=== PATIENT | male | born 1940 | race Caucasian/White ===

== ENCOUNTER 2020-01-04 13:23 | Inpatient (IN) | payer MEDICARE ==
[~2020-01-04] VITALS: Ht 175.3 cm; Wt 93.1 kg
[2020-01-04] MEDS ORDERED: SODIUM CHLORIDE FLUSH 10ML SYR IVF ONE (13:30)
--- NOTE | 2020-01-04 13:59 | NUR ---
PT. ARRIVES BY [facility]. PT. IS BEING TRANSFERRED FROM [facility] FOR EVALUATION OF POSSIBLE THIRD DEGREE HEART BLOCK VS A JUNCTIONAL RHYTHM. PT.'S DAUGHTER TOOK HIM TO THE FACILITY FOR EVUALTION OF HIM BEING WEAK, TREMULOUS AND CONFUSED. PT. IS A & O X 4 WITH A GCS OF 15. PT. IS VERY [place] EVEN WITH HEARING AIDES IN PLACE. UPON ARRIVAL PT. WAS PLACED ON THE CARDIACPULMONARY MONITOR AND A 12 LEAD EKG WAS DONE. PT. ARRIVES WITH A #20G IN PLACE IN HIS RIGHT WRIST FROM THE FIELD A SECOND IV WAS ESTABLISHED IN HIS LAC WITH LABS OBTAINED. PACER PADS ARE IN PLACE. PT. IS PINK, WARM AND DRY. CAP REFILL IS BRISK, LESS THAN 3 SECS. PULSES ARE +2 THROUGHOUT. PT.'S ABD. IS SOFT AND NON-TENDER WITH BS + X 4 QUADS. PT. IS ABLE TO MOVE ALL EXTREMITIES WITHIN NORMAL LIMITS. NO EDEMA NOTED. DR. FREY IS AT THE BEDSIDE.
[2020-01-04 14:05] LABS: BASOPHILS # (AUTO) 0.03 x10^3/uL (0-0.1); BASOPHILS % (AUTO) 0 % (0-1); EOSINOPHILS % (AUTO) 2 % (1-7); LYMPHOCYTES # (AUTO) 2.06 x10^3/uL (1-3.4); LYMPHOCYTES % (AUTO) 24 % (22-44); MD NO; MEAN CORPUSCULAR HEMOGLOBIN 28.8 pg (27.5-34.5); MEAN CORPUSCULAR HGB CONC 33.1 g/dL (33.2-36.2); MEAN PLATELET VOLUME 8.8 fL (7.4-10.4); MONOCYTES # (AUTO) 0.52 x10^3/uL (0.2-0.8); MONOCYTES % (AUTO) 6 % (2-9); NEUTROPHILS % (AUTO) 67 % (42-75); PLATELET COUNT 257 x10^3/uL (130-400); RED BLOOD COUNT 4.34 x10^6/uL (4.38-5.82); RED CELL DISTRIBUTION WIDTH 14.6 % (9.4-14.8)
--- NOTE | 2020-01-04 14:10 | NUR ---
PT. IS HYPOTENSIVE. DR. FREY AND DR. NY AWARE. ORDERS RECEIVED FROM DR. FREY AND CARRIED OUT. RN REMAINS AT THE BEDSIDE WITH THE PT. PACER PADS IN PLACE WITH THE PT. BEING MONITORED. NS BOLUS IS INFUSING.
[2020-01-04 14:13] LABS: ALBUMIN 4.2 g/dL (3.4-5.0); ANION GAP 6 mmol/L (5-15); CALCIUM 10.1 mg/dL (8.5-10.1); CHLORIDE 110 mmol/L (98-107); CREATININE 1.76 mg/dL (0.7-1.3)
[2020-01-04 14:18] LABS: TROPONIN I < 0.015 ng/mL (0.000-0.045)
--- NOTE | 2020-01-04 14:25 | NUR ---
PT.'S BLOOD PRESSURE IS IMPROVING FROM THE NS BOLUS. PT. REMAINS A & O X 4 WITHOUT C/O CHEST PAIN. SKIN IS PINK,WARM AND DRY, CAP REFILL IS BRISK.
[2020-01-04] MEDS ORDERED: SODIUM CHLORIDE 0.9% 1,000ML IVBOLUS ONE (14:30)
[2020-01-04] MEDS ORDERED: ATOR-2 PO (14:41)
[2020-01-04] MEDS ORDERED: MIRT30TA97 PO (14:41)
[2020-01-04] MEDS ORDERED: METF500T17 PO (14:41)
[2020-01-04] MEDS ORDERED: METO50TA82 PO (14:41)
[2020-01-04] MEDS ORDERED: LITH600C PO (14:41)
[2020-01-04] MEDS ORDERED: EXEN2PEN IM (14:41)
[2020-01-04] MEDS ORDERED: GEMF600T8 PO (14:41)
[2020-01-04] MEDS ORDERED: LEVO175T5 PO (14:41)
--- NOTE | 2020-01-04 14:49 | NUR ---
PT.'S BLOOD PRESSURE IS NOW 61/43 THEN 76/43 WITH RECHECK. PT. WAS STARTED ON DOBUTAMINE INFUSION AT 5MCG/KG/MIN PRE DR. NY'S VERBAL ORDER THAT WAS REPEATED BACK TO HIM. CONTINUOUS MONITORING IN PLACE.
--- NOTE | 2020-01-04 14:59 | NUR ---
PT. IS BEING TRANSPORTED TO THE [facility]. MONITOR IN PLACE RN TO ACCOMPANY.
[2020-01-04] MEDS ORDERED: SODIUM CHLORIDE FLUSH 10ML SYR IVF PRN (15:00)
[2020-01-04] MEDS ORDERED: PLEASE ENTER ALLERGIES MC SCH (15:00)
[2020-01-04] MEDS ORDERED: PLEASE ENTER HEIGHT AND WEIGHT MC SCH (15:00)
[2020-01-04] MEDS ORDERED: DOBUTAMINE 500 MG in DEXTROSE 5% 210 ML IV PRN (15:00)
[2020-01-04] MEDS ORDERED: MIDAZOLAM 1 MG/ML, 5ML ONE (15:10)
[2020-01-04] MEDS ORDERED: FENTANYL PF 100 MCG/2ML ONE (15:10)
[2020-01-04] MEDS ORDERED: CEFAZOLIN PMX 1GM/50ML 50 ML ONE (15:10)
[2020-01-04] MEDS ORDERED: CEFAZOLIN 1,000 MG ONE (15:10)
[2020-01-04] MEDS ORDERED: LIDOCAINE 2%, 20ML ONE (15:10)
--- NOTE | 2020-01-04 15:10 | NUR ---
REPORT WAS TO BETHANY DAVIS. PT.'S BLOOD PRESSURE IMPROVED WITH DOBUTAMINE INFUSION.
[2020-01-04] MEDS ORDERED: HOLD MEDICATION MC PRN (16:30)
[2020-01-04] MEDS ORDERED: ONDANSETRON 2MG/ML, 2ML IVPush PRN (17:00)
[2020-01-04] MEDS ORDERED: POLYETHYLENE GLYCOL 17 GM PACKET PO PRN (17:00)
[2020-01-04] MEDS ORDERED: MELATONIN 5 MG TABLET PO PRN (17:00)
[2020-01-04] MEDS ORDERED: hydrALAzine 20 MG/ML, 1ML IVPush PRN (17:00)
[2020-01-04] MEDS ORDERED: HYDROcodone/APAP 5/325 TABLET PO PRN (17:00)
[2020-01-04] MEDS ORDERED: LIDODERM 5% PATCH TD PRN (17:00)
[2020-01-04] MEDS ORDERED: BISACODYL 10 MG SUPP PR PRN (17:00)
[2020-01-04 17:59] LABS: HCT (SEDRATE) 37.8 % (39.2-51.8)
[2020-01-04 18:18] LABS: FREE T4 (FREE THYROXINE) 1.37 ng/dL (0.76-1.46)
[2020-01-04 19:30] VITALS: BP 147/85
[2020-01-04] MEDS: HEPARIN 5,000 UNITS/ML, 1ML SQ SCH (21:00)
[2020-01-04] MEDS: CEFAZOLIN PMX 1GM/50ML 50 ML IVPB SCH (22:31)
[2020-01-04] MEDS: SODIUM CHLORIDE FLUSH 10ML SYR IVF SCH (22:32)
[2020-01-04] MEDS: SODIUM CHLORIDE 0.9% 1,000 ML IV SCH (22:37)
[2020-01-04] MEDS: INSULIN LISPRO 100 UNITS/ML, PEN SQ-INSULIN SCH (23:22)
[2020-01-05 00:39] VITALS: BP 146/69
[2020-01-05] MEDS: LIDODERM REMOVE PATCH NOTE XX SCH (05:00)
[2020-01-05] MEDS: HEPARIN 5,000 UNITS/ML, 1ML SQ SCH ×3 (05:00→21:03)
[2020-01-05 05:37] LABS: BASOPHILS # (AUTO) 0.02 x10^3/uL (0-0.1); BASOPHILS % (AUTO) 0 % (0-1); EOSINOPHILS # (AUTO) 0.11 x10^3/uL (0-0.4); EOSINOPHILS % (AUTO) 2 % (1-7); LYMPHOCYTES # (AUTO) 1.45 x10^3/uL (1-3.4); LYMPHOCYTES % (AUTO) 20 % (22-44); MD NO; MEAN CORPUSCULAR HEMOGLOBIN 28.7 pg (27.5-34.5); MEAN PLATELET VOLUME 9.3 fL (7.4-10.4); MONOCYTES # (AUTO) 0.48 x10^3/uL (0.2-0.8); MONOCYTES % (AUTO) 6 % (2-9); NEUTROPHILS # (AUTO) 5.37 x10^3/uL (1.8-6.8); NEUTROPHILS % (AUTO) 72 % (42-75); PLATELET COUNT 200 x10^3/uL (130-400); RED BLOOD COUNT 4.32 x10^6/uL (4.38-5.82); RED CELL DISTRIBUTION WIDTH 14.1 % (9.4-14.8)
[2020-01-05 05:45] LABS: ANION GAP 5 mmol/L (5-15); CALCIUM 8.8 mg/dL (8.5-10.1); CHLORIDE 112 mmol/L (98-107)
[2020-01-05 05:49] LABS: CHOL/HDL RATIO 6.7; CHOLESTEROL, TOTAL 161 mg/dL (140-239); CREATININE 1.29 mg/dL (0.7-1.3); HDL CHOL % 15 % (26-37); HDL CHOLESTEROL (DIRECT) 24 mg/dL (40-60); LDL CHOLESTEROL,CALCULATED 96 mg/dL (54-169); TRIGLYCERIDES 204 mg/dL (50-200); VLDL CHOLESTEROL 41 mg/dL (0-25)
[2020-01-05] MEDS: CEFAZOLIN PMX 1GM/50ML 50 ML IVPB SCH (06:23)
[2020-01-05 07:29] VITALS: BP 144/69
[2020-01-05] MEDS: INSULIN LISPRO 100 UNITS/ML, PEN SQ-INSULIN SCH ×4 (08:13→20:54)
[2020-01-05] MEDS ORDERED: LISI5TAB7 PO (08:17)
[2020-01-05] MEDS: SODIUM CHLORIDE FLUSH 10ML SYR IVF SCH ×2 (08:23→21:03)
[2020-01-05] MEDS: PANTOPRAZOLE 40MG TABLET PO SCH (08:23)
[2020-01-05] MEDS: SODIUM CHLORIDE 0.9% 1,000 ML IV SCH ×2 (10:29→21:03)
[2020-01-05 13:20] VITALS: BP 121/58
[2020-01-05] MEDS: HYDROcodone/APAP 5/325 TABLET PO PRN (18:16)
[2020-01-05 18:36] VITALS: BP 125/71
[2020-01-06 00:59] VITALS: BP 137/81
[2020-01-06] MEDS: LIDODERM REMOVE PATCH NOTE XX SCH (05:00)
[2020-01-06 05:31] LABS: ANION GAP 6 mmol/L (5-15); CALCIUM 9.3 mg/dL (8.5-10.1); CHLORIDE 112 mmol/L (98-107); CREATININE 1.09 mg/dL (0.7-1.3)
[2020-01-06 05:36] LABS: BASOPHILS # (AUTO) 0.02 x10^3/uL (0-0.1); BASOPHILS % (AUTO) 0 % (0-1); EOSINOPHILS # (AUTO) 0.13 x10^3/uL (0-0.4); EOSINOPHILS % (AUTO) 2 % (1-7); LYMPHOCYTES # (AUTO) 1.71 x10^3/uL (1-3.4); LYMPHOCYTES % (AUTO) 30 % (22-44); MD NO; MEAN CORPUSCULAR HEMOGLOBIN 28.5 pg (27.5-34.5); MEAN CORPUSCULAR HGB CONC 32.3 g/dL (33.2-36.2); MEAN PLATELET VOLUME 8.7 fL (7.4-10.4); MONOCYTES # (AUTO) 0.45 x10^3/uL (0.2-0.8); MONOCYTES % (AUTO) 8 % (2-9); NEUTROPHILS # (AUTO) 3.45 x10^3/uL (1.8-6.8); NEUTROPHILS % (AUTO) 60 % (42-75); PLATELET COUNT 175 x10^3/uL (130-400); RED BLOOD COUNT 4.37 x10^6/uL (4.38-5.82); RED CELL DISTRIBUTION WIDTH 14.1 % (9.4-14.8)
[2020-01-06] MEDS: HEPARIN 5,000 UNITS/ML, 1ML SQ SCH ×3 (06:09→22:35)
[2020-01-06] MEDS: HYDROcodone/APAP 5/325 TABLET PO PRN (06:09)
[2020-01-06] MEDS: SODIUM CHLORIDE 0.9% 1,000 ML IV SCH (06:09)
[2020-01-06 06:50] VITALS: BP 160/80
[2020-01-06] MEDS: INSULIN LISPRO 100 UNITS/ML, PEN SQ-INSULIN SCH ×4 (07:00→21:00)
[2020-01-06] MEDS: PANTOPRAZOLE 40MG TABLET PO SCH (08:46)
[2020-01-06] MEDS: SODIUM CHLORIDE FLUSH 10ML SYR IVF SCH ×2 (08:47→22:36)
[2020-01-06] MEDS: LISINOPRIL 20 MG TABLET PO SCH (10:02)
[2020-01-06 12:37] VITALS: BP 163/99
[2020-01-06] MEDS: LEVOTHYROXINE 137 MCG TABLET PO SCH (13:21)
[2020-01-06 13:24] VITALS: BP 145/75
[2020-01-06] MEDS: ACETAMINOPHEN 325 MG TABLET PO PRN ×2 (17:51→22:34)
[2020-01-06 21:45] VITALS: BP 159/78
[2020-01-06] MEDS: ATORVASTATIN 20 MG TABLET PO SCH (22:34)
[2020-01-06] MEDS: MIRTAZAPINE 30 MG TABLET PO SCH (22:34)
[2020-01-06] MEDS: LITHIUM CARBONATE 300 MG CAPSULE PO SCH (22:35)
[2020-01-07 02:40] VITALS: BP 151/84
[2020-01-07 04:57] LABS: BASOPHILS # (AUTO) 0.01 x10^3/uL (0-0.1); BASOPHILS % (AUTO) 0 % (0-1); EOSINOPHILS # (AUTO) 0.12 x10^3/uL (0-0.4); EOSINOPHILS % (AUTO) 2 % (1-7); LYMPHOCYTES # (AUTO) 1.54 x10^3/uL (1-3.4); LYMPHOCYTES % (AUTO) 26 % (22-44); MD NO; MEAN CORPUSCULAR HEMOGLOBIN 29.1 pg (27.5-34.5); MEAN CORPUSCULAR HGB CONC 33.8 g/dL (33.2-36.2); MEAN PLATELET VOLUME 8.8 fL (7.4-10.4); MONOCYTES # (AUTO) 0.47 x10^3/uL (0.2-0.8); MONOCYTES % (AUTO) 8 % (2-9); NEUTROPHILS # (AUTO) 3.84 x10^3/uL (1.8-6.8); NEUTROPHILS % (AUTO) 64 % (42-75); PLATELET COUNT 168 x10^3/uL (130-400); RED BLOOD COUNT 4.22 x10^6/uL (4.38-5.82); RED CELL DISTRIBUTION WIDTH 13.9 % (9.4-14.8)
[2020-01-07] MEDS: LIDODERM REMOVE PATCH NOTE XX SCH (05:00)
[2020-01-07 05:10] LABS: ANION GAP 6 mmol/L (5-15); CALCIUM 10.4 mg/dL (8.5-10.1); CHLORIDE 112 mmol/L (98-107)
[2020-01-07 05:12] LABS: CREATININE 0.96 mg/dL (0.7-1.3)
[2020-01-07] MEDS: ACETAMINOPHEN 325 MG TABLET PO PRN (06:28)
[2020-01-07] MEDS: HEPARIN 5,000 UNITS/ML, 1ML SQ SCH ×3 (06:28→20:24)
[2020-01-07] MEDS: LEVOTHYROXINE 137 MCG TABLET PO SCH (06:29)
[2020-01-07 06:56] VITALS: BP 150/75
[2020-01-07] MEDS: INSULIN LISPRO 100 UNITS/ML, PEN SQ-INSULIN SCH ×4 (08:37→21:17)
[2020-01-07] MEDS: LITHIUM CARBONATE 300 MG CAPSULE PO SCH ×2 (10:05→20:25)
[2020-01-07] MEDS: LISINOPRIL 20 MG TABLET PO SCH (10:06)
[2020-01-07] MEDS: SODIUM CHLORIDE FLUSH 10ML SYR IVF SCH ×2 (10:06→21:46)
[2020-01-07] MEDS: PANTOPRAZOLE 40MG TABLET PO SCH (10:06)
[2020-01-07 12:10] VITALS: BP 179/95
[2020-01-07 12:47] VITALS: BP 158/86
[2020-01-07 18:41] VITALS: BP 149/76
[2020-01-07] MEDS: ATORVASTATIN 20 MG TABLET PO SCH (20:25)
[2020-01-07] MEDS: MIRTAZAPINE 30 MG TABLET PO SCH (20:25)
[2020-01-07] MEDS: HYDROcodone/APAP 5/325 TABLET PO PRN (21:15)
[2020-01-08 00:25] VITALS: BP 157/91
[2020-01-08] MEDS: LIDODERM REMOVE PATCH NOTE XX SCH (05:00)
[2020-01-08] MEDS: LEVOTHYROXINE 137 MCG TABLET PO SCH (05:27)
[2020-01-08] MEDS: HEPARIN 5,000 UNITS/ML, 1ML SQ SCH ×2 (05:27→13:14)
[2020-01-08 05:38] LABS: BASOPHILS # (AUTO) 0.02 x10^3/uL (0-0.1); BASOPHILS % (AUTO) 0 % (0-1); EOSINOPHILS # (AUTO) 0.16 x10^3/uL (0-0.4); EOSINOPHILS % (AUTO) 2 % (1-7); LYMPHOCYTES # (AUTO) 1.64 x10^3/uL (1-3.4); LYMPHOCYTES % (AUTO) 23 % (22-44); MD NO; MEAN CORPUSCULAR HEMOGLOBIN 28.6 pg (27.5-34.5); MEAN PLATELET VOLUME 9.1 fL (7.4-10.4); MONOCYTES # (AUTO) 0.47 x10^3/uL (0.2-0.8); MONOCYTES % (AUTO) 7 % (2-9); NEUTROPHILS # (AUTO) 4.81 x10^3/uL (1.8-6.8); NEUTROPHILS % (AUTO) 68 % (42-75); PLATELET COUNT 188 x10^3/uL (130-400); RED BLOOD COUNT 4.37 x10^6/uL (4.38-5.82); RED CELL DISTRIBUTION WIDTH 14.2 % (9.4-14.8)
[2020-01-08 05:53] LABS: ALBUMIN 3.7 g/dL (3.4-5.0); ANION GAP 5 mmol/L (5-15); CALCIUM 10.1 mg/dL (8.5-10.1); CHLORIDE 109 mmol/L (98-107)
[2020-01-08 05:59] LABS: ALANINE AMINOTRANSFERASE 15 U/L (12-78); ALKALINE PHOSPHATASE 75 U/L (45-117); BILIRUBIN,TOTAL 0.5 mg/dL (0.2-1.0); CREATININE 1.01 mg/dL (0.7-1.3); TOTAL PROTEIN 7.9 g/dL (6.4-8.2)
[2020-01-08 07:16] VITALS: BP 144/78
[2020-01-08] MEDS: INSULIN LISPRO 100 UNITS/ML, PEN SQ-INSULIN SCH ×2 (07:31→11:57)
[2020-01-08] MEDS: PANTOPRAZOLE 40MG TABLET PO SCH (07:37)
[2020-01-08] MEDS: LITHIUM CARBONATE 300 MG CAPSULE PO SCH (10:22)
[2020-01-08] MEDS: LISINOPRIL 20 MG TABLET PO SCH (10:22)
[2020-01-08] MEDS: SODIUM CHLORIDE FLUSH 10ML SYR IVF SCH (10:22)
[2020-01-08] MEDS ORDERED: ACET325T26 PO (11:15)
[2020-01-08] MEDS ORDERED: LISI-170 PO (11:15)
[2020-01-08] MEDS ORDERED: ATOR20TA37 PO (11:15)
[2020-01-08 13:20] VITALS: BP 137/70
== END 2020-01-08 14:25 | DRG 242 ==
LOC: ED 13:57 → SUATTDRO 14:30 → EDIP 14:39 → 5SO 16:32 → 3N 01-07 14:57
PROVIDERS: ADMIT Hospitalist; ATTEND Hospitalist
PROC: 0JH606Z Insertion of Pacemaker, Dual Chamber into Chest Subcutaneous Tissue and Fascia, Open Approach (ICD-10-PCS; principal; 2020-01-04)
PROC: 02HK3JZ Insertion of Pacemaker Lead into Right Ventricle, Percutaneous Approach (ICD-10-PCS; 2020-01-04)
PROC: 02H63JZ Insertion of Pacemaker Lead into Right Atrium, Percutaneous Approach (ICD-10-PCS; 2020-01-04)
DX: I49.5 Sick sinus syndrome (principal); N17.0 Acute kidney failure with tubular necrosis; E87.1 Hypo-osmolality and hyponatremia; I44.2 Atrioventricular block, complete; E11.9 Type 2 diabetes mellitus without complications; E87.5 Hyperkalemia; I95.9 Hypotension, unspecified; E03.9 Hypothyroidism, unspecified; E78.5 Hyperlipidemia, unspecified; H91.90 Unspecified hearing loss, unspecified ear; I10 Essential (primary) hypertension; F32.9 Major depressive disorder, single episode, unspecified; Z79.84 Long term (current) use of oral hypoglycemic drugs
CPT/HCPCS: 33208; 36415; 71045; 80048; 80053; 80061; 80178; 82040; 82330; 82962; 83036; 83735; 83880; 84100; 84439; 84443; 84484; 85025; 85651; 93005; 93306; 96374; 99156; 99157; 99285; C1779; C1785; C1892; G0378; J0690; J1644; J2250; J3010; J7060; J1250; J1815; J7030